=== PATIENT | female | born 2000 | race Caucasian/White ===

== ENCOUNTER 2019-10-20 20:08 | Emergency (ER) | payer OTHER ==
[~2019-10-20] VITALS: Ht 162.6 cm; Wt 86.2 kg
--- NOTE | 2019-10-20 20:08 | NUR ---
1928- PT TAKEN TO BED 5
--- NOTE | 2019-10-20 20:11 | NUR ---
PA DONNA WITH PT
[2019-10-20 20:17] VITALS: BP 105/65
--- NOTE | 2019-10-20 20:18 | NUR ---
18 YO F WHO WAS BEDSIDE DURING LAC REPAIR FOR BED 6 AND LOSSED CONSCIOUSNESS 2 TIMES DURING PROCEDURE. WITNESSED BY EMT, RED. PT COLLAPSED ON THE FLOOR FOR ABOUT 20 SECONDS AND WAS THEN PLACED IN THE CHAIR IN A SEATED POSITION. PT LOSSED CONSCIOUSNESS FOR THE SECOND TIME WHILE IN A SEATED POSITION FOR ABOUT 10 SECONDS. PT WAS THEN PLACED IN BED 5 AND EVALUATED BY ERMD. PT DENIES PAIN ANYWHERE AND IS A&O X4. DENIES HITTING HEAD DURING FALL. PERRLA PRESENT WITH A BRISK REACTION AT 3MM. STRENGTH EQUAL AND REGULAR IN ALL EXTREMETIES. PERIPHERAL PULSES ARE EQUAL AND REGULAR. PT PLACED ON WATERSHED MANAGER. BED LOCKED AND IN LOWEST POSITION. SIDE RAILS X1. NO MED HX NO RX NKA
--- NOTE | 2019-10-20 20:43 | NUR ---
PT RESTING COMFORTABLY IN BED. EQUAL CHEST RISE AND FALL. PT STATES "SHE FEELS FINE." DENIES LIGHTHEADEDNESS OR DIZZINESS AT THIS TIME.
[2019-10-20 20:51] VITALS: BP 105/65
--- NOTE | 2019-10-20 20:51 | NUR ---
Patient discharged with v/s stable. Written and verbal after care instructions given and explained. Patient verbalized understanding. Ambulatory with steady gait. All questions addressed prior to discharge. Advised to follow up with PMD.
== END 2019-10-20 20:51 | disposition home or self-care (01) ==
LOC: MED 20:08
DX: R55 Syncope and collapse (principal)
CPT/HCPCS: 81025; 99282